=== PATIENT | female | born 1995 | race Two or more races ===

== ENCOUNTER 2024-12-29 23:50 | Emergency (ER) | payer OTHER ==
[~2024-12-29] VITALS: Ht 165.1 cm; Wt 70.3 kg
[2024-12-29 23:56] VITALS: BP 152/80; O2SAT 100
[2024-12-30 01:33] LABS: PH,URINE 7.5 (5.0-8.0); URINE APPEARANCE Clear; URINE BILIRRUBIN Negative (NEGATIVE); URINE BLOOD Negative; URINE COLOR Yellow; URINE GLUCOSE Negative (NEGATIVE); URINE KETONE Negative (NEGATIVE); URINE LEUKOCYTE Trace; URINE NITRATE Negative; URINE PROTEIN Negative (NEGATIVE)
[2024-12-30 01:34] LABS: BASO % 0.5 % (0.1-1.2); EOS # 0.16 (0.04-0.54); EOS % 1.8 % (0.7-7.0); HEMATOCRIT 36.3 % (34.1-44.9); HEMOGLOBIN 11.8 g/dL (11.2-15.7); LYMPH # 2.29 (1.18-3.74); LYMPH % 25.8 % (19.3-53.1); MEAN CORPUSCULAR HEMOGLOBIN 28.6 pg (25.6-32.2); MONO # 0.66 (0.24-0.82); MONO % 7.4 % (4.7-12.5); NEUT # 5.71 (1.56-6.13); NEUT % 64.3 % (34.0-71.1); PLATELET COUNT 168 K/uL (163-369); RED BLOOD COUNT 4.13 M/uL (3.93-5.22); RED CELL DISTRIBUTION WIDTH 13.2 % (11.6-14.4)
[2024-12-30 01:38] LABS: URINE BACTERIA 331.5 uL (0.0-1933); URINE EPITHELIAL CELLS 19.4 uL (0.0-38.8); URINE RBC 4.4 uL (0.0-20.8); URINE WBC 16.1 uL (0.0-23.2)
[2024-12-30 02:06] LABS: ANION GAP 10 (10.0-20.0); BLOOD UREA NITROGEN 13 mg/dL (7-18); BUN CREA RATIO 22 (7.0-25.0); CALCIUM 8.6 mg/dL (8.5-10.1); CARBON DIOXIDE 28 mEq/L (21-32); CHLORIDE 110 mmol/L (98-107); CREATININE SERUM 0.58 mg/dL (0.55-1.02); GLUCOSE FASTING 114 mg/dL (65-100); OSMOLALITY SERUM 288 MOSM/KG (275-295); POTASSIUM 3.93 mEq/L (3.5-5.1); SODIUM 144 mmol/L (136-145)
[2024-12-30 02:07] LABS: HCG QUANTITATIVE < 1 mUI/mL (1-3)
[2024-12-30] MEDS ORDERED: ORASEP SPRAY30 ML MM (04:40)
== END 2024-12-30 05:02 ==
LOC: ER 23:50
PROVIDERS: General Practice
DX: R55 Syncope and collapse (principal); Z88.8 Allergy status to other drugs, medicaments and biological substances